=== PATIENT | female | born 1970 | race Caucasian/White ===

== ENCOUNTER 2022-02-24 09:15 | Emergency (ER) | payer OTHER ==
[2022-02-24 10:03] LABS: Urine Blood Trace-intact (Negative); Urine Glucose Negative (Negative); Urine Protein Negative (Negative)
[2022-02-24] MEDS ORDERED: Levofloxacin500mg IV 0 MG/0 ML BAG IV ONE (10:03)
--- NOTE | 2022-02-24 10:18 | RAD REPORT ---
EXAM DESCRIPTION: CT - Stone Protocol - 02/24/2022 10:01 am CLINICAL HISTORY: Flank pain. flank COMPARISON: No comparisons TECHNIQUE: Axial images were obtained without oral or IV contrast. Lack of contrast limits solid org an and vascular assessment. The [id number] spans the entirety of the system partially obscuring uppermost abdomen and lung bases. Coronal reformatted images were obtained and reviewed. All CT scans are performed using dose optimization technique as appropriate and may include automated exposure control or mA/KV adjustment according to patient size. FINDINGS: The lower lung phan are clear. Cholecystectomy clips. Imaged portions of the liver and spleen show no suspicious findings on non-contrast imaging. The panc reas and adrenal glands are normal. No pathologic lymphadenopathy in the abdomen or pelvis. No urinary tract stones or obstructive uropathy. No bowel obstruction, free air, free fluid or abscess. Normal appendix noted.Significant stool is ret ained throughout the colon. Moderate levoscoliosis of the lumbar spine. IMPRESSION: No urinary tract stones or obstructive uropathy. Significant stool is present throughout the colon.
[2022-02-24 10:24] LABS: Urine Bacteria <20 /HPF (<20); Urine Mucus Slight /HPF (None Seen); Urine RBC <5 /HPF (None Seen)
--- NOTE | 2022-02-24 10:42 | ER ---
Nurse's Notes [facility] Name: Jen Gunter Age: 51 yrs Sex: Female : 1970 Arrival Date: 02/24/2022 Time: 09:20 Bed 8 Private MD: Diagnosis: Dysuria;Constipation, unspecified Presentation: 02/24 09:21 Chief complaint: Pt's mother states "we think she may have a urinary infection because aa5 she's been acting like it's been hard to urinate since yesterday". Pt is non-verbal. 09:21 Coronavirus screen: At this time, the client does not indicate any symptoms associated aa5 with coronavirus-19. Ebola Screen: Patient denies travel to an Ebola-affected area in the 21 days before illness onset. Initial Sepsis Screen: Does the patient meet any 2 criteria? HR > 90 bpm. Does the patient have a suspected source of infection? Yes:. Risk Assessment: Do you want to hurt yourself or someone else? Unable to obtain. Onset of symptoms was February 2022. 09:21 Acuity: AZRA 3 aa5 09:21 Method Of Arrival: Ambulatory aa5 ENTERTAINER & COMIC: 09:45 LMP N/A - Hysterectomy em6 Historical: - Allergies: 09:35 Sulfa (Sulfonamide Antibiotics); em6 09:35 Amoxicillin; em6 09:35 cefaclor; em6 09:35 Cefzil; em6 09:35 Keflex; em6 09:35 Urispas; em6 09:35 Vantin; em6 - PMHx: 09:35 Hypertensive disorder; em6 - PSHx: 09:35 Tonsillectomy; hysterectomy; Appendectomy; Cholecystectomy; Hernia Repair; em6 - Immunization history:: Adult Immunizations unknown. - Social history:: Smoking status: unknown. - Family history:: not pertinent. Screenin:45 Abuse screen: Denies threats or abuse. Nutritional screening: No deficits noted. em6 Tuberculosis screening: No symptoms or risk factors identified. 11:13 Fall Risk No fall in past 12 months (0 pts). No secondary diagnosis (0 pts). No IV (0 em6 pts). Ambulatory Aid- None/Bed Rest/Nurse Assist (0 pts). Gait- Normal/Bed Rest/Wheelchair (0 pts) Mental Status- Oriented to own ability (0 pts). Total Mccabe Fall Scale indicates No Risk (0-24 pts). Assessment: 09:38 General: Appears in no apparent distress. Behavior is calm, cooperative. Pain: Unable em6 to use pain scale. FLACC scale score is 0 out of 10. Neuro: Level of Consciousness is awake, alert, obeys commands, family reports patient history of autism at baseline cognitive impairment (delayed) . Cardiovascular: Heart tones present. Respiratory: Airway is patent Respiratory effort is even, unlabored, Respiratory pattern is regular, symmetrical, Breath sounds are clear bilaterally. GI: Abdomen is non-distended, Abd is soft and non tender X 4 quads. : Parent/caregiver report the patient having urination discomfort symptoms noted by patients family. hx of bladder infection. EENT: No signs and/or symptoms were reported regarding the EENT system. Derm: No signs and/or symptoms reported regarding the dermatologic system. Musculoskeletal: Circulation, motion, and sensation intact. 10:40 Reassessment: Patient appears in no apparent distress at this time. No changes from em6 previously documented assessment. Patient and/or family updated on plan of care and expected duration. Pain level reassessed. Vital Signs: 09:21 BP 176 / 90; Pulse 120; Resp 20 S; Temp 98.8(A); Pulse Ox 100% on R/A; aa5 11:12 BP 176 / 94; Pulse 99; Resp 20; Pulse Ox 100% on R/A; em6 ED Course: 09:20 Patient arrived in ED. rg4 09:21 Arm band placed on. aa5 09:22 Oskar Sykes RN is Primary Nurse. jd3 09:23 Ivan Arevalo MD is Attending Physician. herson 09:33 Triage completed. aa5 09:45 Bed in low position. Call light in reach. Side rails up X2. Adult w/ patient. Pulse ox em6 on. NIBP on. Warm blanket given. 10:02 CT Stone Protocol In Process Unspecified. EDMS 11:14 No provider procedures requiring assistance completed. Patient did not have IV access em6 during this emergency room visit. Administered Medications: 11:00 Drug: Lactulose 30 grams Volume: 45 ml; Route: PO; em6 11:14 Follow up: Response: No adverse reaction em6 11:00 Drug: Dulcolax (bisacodyl) Suppository 10 mg Route: UT; em6 11:13 Follow up: Response: No adverse reaction em6 11:11 Not Given (caregivers refused ): levofloxacin 500 mg 100 ml IVPB once over 60 mins em6 Medication: 11:13 VIS not applicable for this client. em6 Outcome: 10:41 Discharge ordered by . herson 11:14 Discharged to home ambulatory, with family. em6 11:14 Condition: stable 11:14 Discharge instructions given to family, Instructed on discharge instructions, follow up and referral plans. medication usage, Demonstrated understanding of instructions, follow-up care, medications, Prescriptions given X 3. 11:15 Patient left the ED. em6 Signatures: Dispatcher [employer] EDMS Ivan Arevalo MD MD cha Calderon, Audri, RN RN [id number] Keri Ortiz Jonathon, RN RN jd3 Kadie Patten RN RN em6 Corrections: (The following items were deleted from the chart) 11:14 11:11 Dulcolax (bisacodyl) Suppository 10 mg UT em6 em6 11:14 11:11 Lactulose 30 grams 45 ml PO 45 ml em6 em6
--- NOTE | 2022-02-24 10:42 | EDPHYS ---
Physician Documentation [facility] Name: Jen Gunter Age: 51 yrs Sex: Female : 1970 Arrival Date: 02/24/2022 Time: 09:20 Bed 8 Private MD: ED Physician Ivan Arevalo HPI: 02/24 10:22 This 51 yrs old Female presents to ER via Ambulatory with complaints of herson Urinary Problem. 10:22 The patient presents with abdominal pain in the lower abdomen. Onset: The herson symptoms/episode began/occurred 2 day(s) ago. The patient presents with urinary symptoms, frequency, hesitancy. Onset: The symptoms/episode began/occurred 2 day(s) ago. Modifying factors: The symptoms are alleviated by nothing, the symptoms are aggravated by nothing. Associated signs and symptoms: The patient has no apparent associated signs or symptoms. Severity of symptoms: At their worst the symptoms were mild, in the emergency department the symptoms are unchanged. DIALYSIS TECH: 09:45 LMP N/A - Hysterectomy em6 Historical: - Allergies: 09:35 Sulfa (Sulfonamide Antibiotics); em6 09:35 Amoxicillin; em6 09:35 cefaclor; em6 09:35 Cefzil; em6 09:35 Keflex; em6 09:35 Urispas; em6 09:35 Vantin; em6 - PMHx: 09:35 Hypertensive disorder; em6 - PSHx: 09:35 Tonsillectomy; hysterectomy; Appendectomy; Cholecystectomy; Hernia Repair; em6 - Immunization history:: Adult Immunizations unknown. - Social history:: Smoking status: unknown. - Family history:: not pertinent. ROS: 10:22 Constitutional: Negative for fever, chills, and weight loss, Eyes: Negative for injury, herson pain, redness, and discharge, ENT: Negative for injury, pain, and discharge, Neck: Negative for injury, pain, and swelling, Cardiovascular: Negative for chest pain, palpitations, and edema, Respiratory: Negative for shortness of breath, cough, wheezing, and pleuritic chest pain, Abdomen/GI: Negative for abdominal pain, nausea, vomiting, diarrhea, and constipation, Back: Negative for injury and pain, MS/Extremity: Negative for injury and deformity, Skin: Negative for injury, rash, and discoloration, Neuro: Negative for headache, weakness, numbness, tingling, and seizure, Psych: Negative for depression, anxiety, suicide ideation, homicidal ideation, and hallucinations, Allergy/Immunology: Negative for hives, rash, and allergies, Endocrine: Negative for neck swelling, polydipsia, polyuria, polyphagia, and marked weight changes, Hematologic/Lymphatic: Negative for swollen nodes, abnormal bleeding, and unusual bruising. 10:22 : Positive for urinary symptoms, small amounts, burning with urination. Exam: 10:22 Constitutional: This is a well developed, well nourished patient who is awake, alert, herson and in no acute distress. Head/Face: Normocephalic, atraumatic. Eyes: Pupils equal round and reactive to light, extra-ocular motions intact. Lids and lashes normal. Conjunctiva and sclera are non-icteric and not injected. Cornea within normal limits. Periorbital areas with no swelling, redness, or edema. ENT: Nares patent. No nasal discharge, no septal abnormalities noted. Tympanic membranes are normal and external auditory canals are clear. Oropharynx with no redness, swelling, or masses, exudates, or evidence of obstruction, uvula midline. Mucous membranes moist. Neck: Trachea midline, no thyromegaly or masses palpated, and no cervical lymphadenopathy. Supple, full range of motion without nuchal rigidity, or vertebral point tenderness. No Meningismus. Chest/axilla: Normal chest wall appearance and motion. Nontender with no deformity. No lesions are appreciated. Cardiovascular: Regular rate and rhythm with a normal S1 and S2. No gallops, murmurs, or rubs. Normal PMI, no JVD. No pulse deficits. Respiratory: Lungs have equal breath sounds bilaterally, clear to auscultation and percussion. No rales, rhonchi or wheezes noted. No increased work of breathing, no retractions or nasal flaring. Back: No spinal tenderness. No costovertebral tenderness. Full range of motion. Skin: Warm, dry with normal turgor. Normal color with no rashes, no lesions, and no evidence of cellulitis. MS/ Extremity: Pulses equal, no cyanosis. Neurovascular intact. Full, normal range of motion. Neuro: Awake and alert, GCS 15, oriented to person, place, time, and situation. Cranial nerves II-XII grossly intact. Motor strength 5/5 in all extremities. Sensory grossly intact. Cerebellar exam normal. Normal gait. Psych: Awake, alert, with orientation to person, place and time. Behavior, mood, and affect are within normal limits. 10:22 Abdomen/GI: Inspection: abdomen appears normal, Bowel sounds: normal, Palpation: abdomen is soft and non-tender, Liver: no appreciated palpable abnormalities, Hernia: not appreciated. Vital Signs: 09:21 BP 176 / 90; Pulse 120; Resp 20 S; Temp 98.8(A); Pulse Ox 100% on R/A; aa5 11:12 BP 176 / 94; Pulse 99; Resp 20; Pulse Ox 100% on R/A; em6 MDM: 09:23 Patient medically screened. [facility] 10:22 Data reviewed: vital signs, nurses notes, lab test result(s), radiologic studies, CT herson scan. Data interpreted: playground monitor: rate is 120 beats/min, rhythm is regular, Pulse oximetry: on room air is 100 %. Counseling: I had a detailed discussion with the patient and/or guardian regarding: the historical points, exam findings, and any diagnostic results supporting the discharge/admit diagnosis, lab results, radiology results, the need for outpatient follow up, for definitive care, a family practitioner. 02/24 09:42 Order name: CT Stone Protocol; Complete Time: 10:22 [facility] 02/24 09:42 Order name: Urine Culture [facility] 02/24 09:42 Order name: Urine Microscopic Only; Complete Time: 10:36 [facility] 02/24 10:03 Order name: Urine Dipstick-Ancillary; Complete Time: 10:22 EDAL 02/24 09:42 Order name: Urine Dipstick-Ancillary (obtain specimen); Complete Time: 11:11 herson Administered Medications: 11:00 Drug: Lactulose 30 grams Volume: 45 ml; Route: PO; em6 11:14 Follow up: Response: No adverse reaction em6 11:00 Drug: Dulcolax (bisacodyl) Suppository 10 mg Route: [place]; em6 11:13 Follow up: Response: No adverse reaction em6 11:11 Not Given (caregivers refused ): levofloxacin 500 mg 100 ml IVPB once over 60 mins em6 Disposition Summary: 02/24/22 10:41 Discharge Ordered Location: Home herson Problem: new herson Symptoms: have improved herson Condition: Stable herson Diagnosis - Dysuria herson - Constipation, unspecified herson Followup: herson - With: Private Physician - When: 2 - 3 days - Reason: Recheck today's complaints, Continuance of care, Re-evaluation by your physician Discharge Instructions: - Discharge Summary Sheet herson - Constipation, Adult herson - Dysuria herson Forms: - Medication Reconciliation Form herson - Thank You Letter herson - Antibiotic Education herson - Prescription Opioid Use [facility] Prescriptions: - levofloxacin 250 mg Oral Tablet - take 1 tablet by ORAL route once daily; 7 tablet; Refills: 0, Product Selection [facility] Permitted - Miralax - take 17 gram by ORAL route 1-2 times daily; 28 packet; Refills: 0, Product [facility] Selection Permitted - Dulcolax (bisacodyl) 5 mg Oral tablet,delayed release (DR/EC) - take 1 tablet by ORAL route once daily; 20 tablet; Refills: 0, Product [facility] Selection Permitted Signatures: Dispatcher [employer] Ivan Gracia MD MD cha Martinez, Erika RN RN em6 Corrections: (The following items were deleted from the chart) 11:12 09:42 Urine Test ordered. [facility] em6
[2022-02-24] MEDS ORDERED: BISACODYL 10 MG RECTAL SUPP ONE (11:06)
[2022-02-24] MEDS ORDERED: LACTULOSE 20 GM/30 ML UCUP ONE (11:06)
[2022-02-24 11:37] VITALS: O2SAT 100
[2022-02-24 11:48] VITALS: BP 176/90; TEMP 98.8
== END 2022-02-24 11:15 | disposition home or self-care (01) ==
LOC: ER 09:15
DX: R30.0 Dysuria (principal); K59.00 Constipation, unspecified; I10 Essential (primary) hypertension; Z88.1 Allergy status to other antibiotic agents; Z88.2 Allergy status to sulfonamides; Z88.8 Allergy status to other drugs, medicaments and biological substances
CPT/HCPCS: 74176; 76377; 81003; 81015; 87086; 87088; 99284